=== PATIENT | female | born 1995 | race Asian ===

== ENCOUNTER 2017-07-13 09:37 | Outpatient (CLI) | payer MEDICAID ==
[~2017-07-13] VITALS: Ht 160 cm; Wt 60.9 kg
[2017-07-13 09:56] VITALS: BP 111/46; PULSE 71; TEMP 98.1
[2017-07-13] MEDS ORDERED: PRENATAL MVI (10:01)
[2017-07-13 10:38] LABS: MEAN CELL VOLUME 94 fl (80.0-100.0); MEAN CORPUSCULAR HGB CONC 34 g/dl (33.0-37.0); PLATELET COUNT 263 K/mm3 (130-400); RED BLOOD COUNT 3.54 M/mm3 (4.10-5.30); REDCELL DISTRIBUTION WIDTH-CV 12.3 % (11.5-14.5)
[2017-07-13 10:43] LABS: HEMATOCRIT 33.2 % (37.0-47.0); HEMOGLOBIN 11.3 g/dl (12.5-16.0); MEAN CORPUSCULAR HEMOGLOBIN 32 pg (27.0-31.0)
[2017-07-13 10:45] VITALS: BP 104/49; PULSE 65
[2017-07-13 10:52] LABS: COLLECTION METHOD CLEAN CATCH
[2017-07-13 10:59] LABS: ALBUMIN 3.7 gm/dL (3.5-5.0); BILIRUBIN,TOTAL 0.3 mg/dL (0.0-1.0); CALCIUM 9.2 mg/dL (8.4-10.2); CREATININE, serum 0.47 mg/dL (0.52-1.25); POTASSIUM 3.5 mmol/L (3.4-5.0); TOTAL PROTEIN 6.8 gm/dL (6.4-8.2)
[2017-07-13 11:06] LABS: MUCOUS Present /lpf; PH 7 (5-8); SQUAMOUS EPITHELIAL 0-2 /hpf; URINE APPEARANCE Clear; URINE BACTERIA None Seen /hpf; URINE BILIRUBIN Negative (NEGATIVE); URINE BLOOD Negative (NEGATIVE); URINE COLOR Straw; URINE GLUCOSE Negative (NEGATIVE); URINE KETONE Negative (NEGATIVE); URINE LEUKOCYTE ESTERASE Negative (NEGATIVE); URINE NITRATE Negative (NEGATIVE); URINE PROTEIN(semi-quant) Negative (NEGATIVE); URINE RBC 0-2 /hpf; URINE UROBILINOGEN Negative (NEGATIVE); URINE WBC 0-2 /hpf
[2017-07-13 11:33] LABS: TRICYCLIC ANTIDEPRESS URINE NEGATIVE
[2017-07-13 11:45] VITALS: BP 133/75; PULSE 78
== END 2017-07-13 12:00 | disposition home or self-care (01) ==
LOC: LDRO 09:37
PROVIDERS: Obstetrics & Gynecology
DX: O62.2 Other uterine inertia (principal); Z3A.31 31 weeks gestation of pregnancy

== ENCOUNTER 2017-07-25 16:05 | Outpatient (CLI) | payer MEDICAID ==
[~2017-07-25] VITALS: Ht 160 cm; Wt 62.3 kg
[~2017-07-25 16:05] MED LIST: PRENATAL MVI
[2017-07-25 16:19] VITALS: BP 107/54; PULSE 77; TEMP 98.4
[2017-07-25 16:45] VITALS: BP 108/52; PULSE 82; TEMP 98.4
[2017-07-25 17:10] VITALS: BP 104/53; PULSE 82
[2017-07-27] MEDS ORDERED: ZITHROMAX500 M2 PO (16:48)
== END 2017-07-25 17:20 | disposition home or self-care (01) ==
LOC: LDRO 16:05
DX: O99.89 Other specified diseases and conditions complicating pregnancy, childbirth and the puerperium (principal); M54.5 Low back pain; Z3A.32 32 weeks gestation of pregnancy

== ENCOUNTER → 2017-07-27 | Outpatient (CLI) | payer MEDICAID ==
[~2017-07-27] VITALS: Ht 160 cm; Wt 62.7 kg
[~2017-07-27] MED LIST changes: +ZITHROMAX500 M2 PO
[2017-07-27 13:27] VITALS: BP 119/59; PULSE 72; TEMP 98
== END ==
LOC: LDRO 13:06
DX: O62.9 Abnormality of forces of labor, unspecified (principal); Z3A.33 33 weeks gestation of pregnancy
CPT/HCPCS: J0702; J2540; J3475; J7120

== ENCOUNTER 2017-08-23 14:17 | Inpatient (IN) | payer MEDICAID ==
[~2017-08-23] VITALS: Ht 160 cm; Wt 62.3 kg
[2017-08-23] VITALS (18 sets, daily range): BP systolic 95–130; BP diastolic 50–76; PULSE 72–115; TEMP 97.4–98.3
[2017-08-23 17:15] LABS: BASO % 0.3 % (0.0-2.0); EOS # 0.2 (0.0-0.7); EOS % 1.5 % (0-4.0); GRAN # 5.5 (1.4-6.5); GRAN % 53.2 % (42.2-75.2); HEMOGLOBIN 11.1 g/dl (12.5-16.0); LYMPH # 3.5 (1.2-3.4); LYMPH % 33.8 % (20.0-51.0); MEAN CELL VOLUME 96 fl (80.0-100.0); MEAN CORPUSCULAR HEMOGLOBIN 32 pg (27.0-31.0); MEAN CORPUSCULAR HGB CONC 33 g/dl (33.0-37.0); MEAN PLATELET VOLUME 10.8 fl (7.4-10.4); MONO # 1.1 (0.1-0.6); MONO % 10.7 % (1.7-9.3); PLATELET COUNT 292 K/mm3 (130-400); RED BLOOD COUNT 3.46 M/mm3 (4.10-5.30); REDCELL DISTRIBUTION WIDTH-CV 12.6 % (11.5-14.5)
[2017-08-23 17:17] LABS: HEMATOCRIT 33.2 % (37.0-47.0)
[2017-08-23 18:07] LABS: TRICYCLIC ANTIDEPRESS URINE NEGATIVE
[2017-08-24 03:45] VITALS: BP 108/74; PULSE 69; TEMP 97.8
[2017-08-24 06:59] VITALS: BP 108/52; PULSE 70; TEMP 97.8
[2017-08-24 15:35] VITALS: BP 104/62; PULSE 78; TEMP 98.2
[2017-08-24 21:00] VITALS: BP 104/50; PULSE 59; TEMP 98
[2017-08-25] MEDS ORDERED: IBU600 MG PO (07:34)
[2017-08-25 08:05] VITALS: BP 103/48; PULSE 64; TEMP 97.9
== END 2017-08-25 15:55 | disposition home or self-care (01) | DRG 775 ==
LOC: LDRO 14:17 → OB 17:14 → LDR 17:14 → OB 21:40
PROVIDERS: Obstetrics & Gynecology
PROC: 10E0XZZ Delivery of Products of Conception, External Approach (ICD-10-PCS; principal; 2017-08-23)
PROC: 0UQMXZZ Repair Vulva, External Approach (ICD-10-PCS; 2017-08-23)
DX: O60.14X0 Preterm labor third trimester with preterm delivery third trimester, not applicable or unspecified (principal); Z3A.36 36 weeks gestation of pregnancy; Z37.0 Single live birth; O70.0 First degree perineal laceration during delivery; O99.334 Smoking (tobacco) complicating childbirth
CPT/HCPCS: J2590; J7120

== ENCOUNTER 2018-04-19 16:00 | Emergency (ER) | payer MEDICAID ==
[~2018-04-19] VITALS: Ht 160 cm; Wt 50.5 kg
[~2018-04-19 16:00] MED LIST changes: +IBU600 MG PO
[2018-04-19 16:33] LABS: COLLECTION METHOD CLEAN CATCH
[2018-04-19 16:46] LABS: MUCOUS Present /lpf; PH 7 (5-8); URINE APPEARANCE Clear; URINE BACTERIA None Seen /hpf; URINE BILIRUBIN Negative (NEGATIVE); URINE BLOOD 1+ (NEGATIVE); URINE COLOR Yellow; URINE GLUCOSE Negative (NEGATIVE); URINE KETONE Negative (NEGATIVE); URINE LEUKOCYTE ESTERASE Trace (NEGATIVE); URINE NITRATE Negative (NEGATIVE); URINE PROTEIN(semi-quant) 1+ (NEGATIVE); URINE RBC 0-2 /hpf; URINE UROBILINOGEN >=4.0 mg/dL (NEGATIVE)
[2018-04-19 18:10] VITALS: BP 112/65; PULSE 61; TEMP 97.7
[2018-04-19] MEDS ORDERED: ULTRAM 50MG TAB50 MG PO (18:14)
== END 2018-04-19 18:21 | disposition home or self-care (01) ==
LOC: COL.ER 16:00
PROVIDERS: Nurse Practitioner
DX: M54.5 Low back pain (principal); R10.2 Pelvic and perineal pain

== ENCOUNTER 2019-01-04 15:42 | Inpatient (IN) | payer SELFPAY ==
[2019-01-04] VITALS (23 sets, daily range): BP systolic 83–123; BP diastolic 47–68; PULSE 62–116; TEMP 97.5–98.6
[~2019-01-04] VITALS: Ht 160 cm; Wt 57.7 kg
--- NOTE | 2019-01-04 15:40 | NUR ---
Pt here from ER with c/o pelvic pressure and vaginal spotting yesterday. Pt to EFM, explained. SVE:/bulgy bag of reynoso. Roles at nurse's station and notified. Orders received. Physician at bedside and plan of care reviewed. FHR reactive, VSS. 33.3 weeks gestation, G3L2. IV start attempted x 1 per this nurse and attempted per Ananya CARROLL. Cara CAMPUS EXECUTIVE DIRECTOR at beside and IV started right right hand. Flushes without difficulty. 1615:Report given to Bev CARROLL. IV started to right hand per Bev CARROLL. energy conservation technician here and blood drawn from IV site.
[~2019-01-04 15:42] MED LIST changes: +ULTRAM 50MG TAB50 MG PO
--- NOTE | 2019-01-04 16:15 | NUR ---
PATIENT IN BED. RESTING. TEARY EYED. REPORT FROM Ratna FRANK RN
[2019-01-04 16:42] LABS: BASO % 0.3 % (0.0-2.0); EOS # 0.1 (0.0-0.7); EOS % 0.8 % (0-4.0); GRAN % 62.8 % (42.2-75.2); HEMOGLOBIN 12.3 g/dl (12.5-16.0); LYMPH # 2.1 (1.2-3.4); LYMPH % 26.4 % (20.0-51.0); MEAN CELL VOLUME 95 fl (80.0-100.0); MEAN CORPUSCULAR HEMOGLOBIN 33 pg (27.0-31.0); MEAN CORPUSCULAR HGB CONC 34 g/dl (33.0-37.0); MEAN PLATELET VOLUME 10.5 fl (7.4-10.4); MONO # 0.7 (0.1-0.6); MONO % 9.3 % (1.7-9.3); PLATELET COUNT 171 K/mm3 (130-400); RED BLOOD COUNT 3.77 M/mm3 (4.10-5.30); REDCELL DISTRIBUTION WIDTH-CV 12.1 % (11.5-14.5)
[2019-01-04 16:43] LABS: ALBUMIN 3.9 gm/dL (3.5-5.0); BILIRUBIN,TOTAL 0.5 mg/dL (0.0-1.0); CALCIUM 9.1 mg/dL (8.4-10.2); CREATININE, serum 0.37 (0.52-1.25); HEMATOCRIT 35.9 % (37.0-47.0); POTASSIUM 3.7 mmol/L (3.4-5.0); TOTAL PROTEIN 6.7 gm/dL (6.4-8.2)
[2019-01-04 17:28] LABS: COLLECTION METHOD CLEAN CATCH
[2019-01-04 17:40] LABS: AMORPHOUS CRYSTAL Present /uL; MUCOUS Present /lpf; PH 9 (5-8); SQUAMOUS EPITHELIAL 0-2 /hpf; URINE APPEARANCE Cloudy; URINE BACTERIA None Seen /hpf; URINE BILIRUBIN Negative (NEGATIVE); URINE BLOOD Negative (NEGATIVE); URINE COLOR Yellow; URINE GLUCOSE Negative (NEGATIVE); URINE KETONE Negative (NEGATIVE); URINE LEUKOCYTE ESTERASE Negative (NEGATIVE); URINE NITRATE Negative (NEGATIVE); URINE PROTEIN(semi-quant) Negative (NEGATIVE); URINE RBC 0-2 /hpf; URINE WBC 0-2 /hpf
[2019-01-04 17:45] LABS: TRICYCLIC ANTIDEPRESS URINE NEGATIVE
--- NOTE | 2019-01-04 18:00 | NUR ---
PATIENT BREATHING THROUGH CONTRACTIONS. SVE /-2. 1809- SVE /-2. CHELSEY BRIGHT CALLED FOR ANESTHESIA 1814- REPORT GIVEN TO YAZAN Abrams RN.
--- NOTE | 2019-01-04 18:23 | NUR ---
1809 - DEANGELO Marroquin at bedside for epidural placement. Pt repositioned to sitting on edge of bed. Epidural prodecure, risks, and benefits explained to patient, pt verbalized understanding. 1822 - Single shot by DEANGELO Marroquin. Pt denies any adverse reactions. 1829 - Pt positioned to right lateral. Safety precautions reviewed. Call light within reach. See Anesthesia record.
--- NOTE | 2019-01-04 18:30 | NUR ---
Lungs clear bilaterally. DTR +2 bilaterally. Alert and oriented x 4
--- NOTE | 2019-01-04 19:05 | NUR ---
Roles at bedside. AROM performed with small amount of bloody fluid returned. SVE 7-8//-2. Pt positioned to right side with pillow support. Pericare provided. Call light within reach.
--- NOTE | 2019-01-04 20:00 | NUR ---
Pt calling out stating she is in a lot of pain. SVE by Dr. Craig /0. Cara, LEASING MANAGER called, will come to bedside.
--- NOTE | 2019-01-04 20:30 | NUR ---
Lungs clear bilaterally. DTR +2 bilaterally. Alert and oriented x 4.
--- NOTE | 2019-01-04 20:55 | NUR ---
Dr. Craig at bedside for SVE, anterior lip. Pts BP 89/48 and symptomatic, verbal orders from Dr. Craig to treat BP. Pt repositioned to left side with pillow support. 2105 - 10 mg ephedrine given IV once, see MAR.
--- NOTE | 2019-01-04 21:21 | NUR ---
2114 - Roles at bedside for SVE complete and +1 station. Nursery team notified. Room set up for delivery. Pérez catheter out. 2118 - Pt positioned into footplates. Dr. Craig gowned and gloved at perineum. Pt educated on pushing techniques. 2120 - Spontaneous delivery of viable infant girl. Care of infant assumed to Dr. Ochoa and Hallie Nursery RN. Cord gases and cord blood obtained. 2126 - Spontaneous delivery of intact placenta. Verbal orders for placenta to be sent to pathology. Magnesium off. Pitocin started at 333 mL/hr per protocol. Fundus firm and down 2 from umbilicus. Perineum intact per Dr. Craig. 2129 - Pericare provided. New chux beneath patient. Ice pack to perineum. Pt repositioned in bed. recovery started. Call light within reach.
--- NOTE | 2019-01-04 23:45 | NUR ---
Pt able to lift and hold each leg off of bed for 5 seconds. Pt repositioned to sitting on edge of bed. Epidural catheter removed. Tip smooth, blue, and intact. Pt able to ambulate to bathroom independently. Pt able to void 400 mL bloody urine. Pericare explained and provided. Mesh pantines and peripad applied. New gown on. Pt transferred to room 208 in wheelchair with belongings.
[2019-01-05 05:00] VITALS: BP 102/47; PULSE 56; TEMP 97.9
--- NOTE | 2019-01-05 06:57 | NUR ---
PT WORKING ON CERTIFICATE AT THIS TIME. SHE STATES SHE IS NOT PUTTING FOB ON CERTIFICATE. PT DESIRES TO HAVE HER IV TAKEN OUT SO SHE CAN GO OUT SIDE FOR SOME FRESH AIR. PT'S FRIEND YECENIA IS WITH HER AT THIS TIME.
[2019-01-05 07:05] VITALS: BP 105/57; PULSE 56; TEMP 97.4
[2019-01-05] MEDS ORDERED: PERCOCET 325 MG1 TA2 PO (08:52)
[2019-01-05] MEDS ORDERED: IBU600 MG PO (08:52)
== END 2019-01-05 10:35 | disposition home or self-care (01) | DRG 807 ==
LOC: LDRO 15:42 → OB 16:21 → LDR 16:21 → OB 01-05
PROVIDERS: Obstetrics & Gynecology; ADMIT Obstetrics & Gynecology
PROC: 10E0XZZ Delivery of Products of Conception, External Approach (ICD-10-PCS; principal; 2019-01-04)
DX: O60.14X0 Preterm labor third trimester with preterm delivery third trimester, not applicable or unspecified (principal); Z37.1 Single stillbirth; Z3A.33 33 weeks gestation of pregnancy; O70.0 First degree perineal laceration during delivery; F12.10 Cannabis abuse, uncomplicated
CPT/HCPCS: J0290; J0702; J2590; J2795; J3475; J7120